=== PATIENT | female | born 1950 | race Caucasian/White ===

== ENCOUNTER → 2020-04-28 10:00 | Outpatient (BNVA) | payer MEDICARE, OTHER, SELFPAY | PROVIDERS: Visit Provider Internal Medicine | DX: R76.8 Other specified abnormal immunological findings in serum (principal); B19.20 Unspecified viral hepatitis C without hepatic coma; B18.2 Chronic viral hepatitis C; E11.9 Type 2 diabetes mellitus without complications; R94.5 Abnormal results of liver function studies | CPT/HCPCS: 80053; 82105; 85025; 86705; 86706; 86709; 86803; 87340; 87522; 87902 ==

== ENCOUNTER → 2020-05-03 08:48 | Outpatient (BNVA) | payer MEDICARE, OTHER, SELFPAY | PROVIDERS: Visit Provider Nurse Practitioner Family | DX: E11.9 Type 2 diabetes mellitus without complications (principal) | CPT/HCPCS: 85025 ==

== ENCOUNTER → 2020-06-21 09:18 | Outpatient (BNVA) | payer MEDICARE, OTHER, SELFPAY | PROVIDERS: Visit Provider Internal Medicine | DX: B19.20 Unspecified viral hepatitis C without hepatic coma (principal) | CPT/HCPCS: 87522 ==

== ENCOUNTER → 2020-11-15 10:30 | Outpatient (BNVA) | payer MEDICARE, OTHER, SELFPAY | PROVIDERS: Visit Provider Internal Medicine | DX: B18.2 Chronic viral hepatitis C (principal) | CPT/HCPCS: 87522 ==

== ENCOUNTER 2022-08-20 10:09 | Outpatient (CLI) | payer MEDICARE, OTHER, SELFPAY ==
--- NOTE | 2022-08-20 10:45 | XRR_ITS ---
PROCEDURE INFORMATION: Exam: XR Chest Exam date and time: 08/20/2022 10:45 AM Age: 71 years old Clinical indication: Pre-operative exam; Cardiovascular screening and respiratory screening exam; Prior surgery; Surgery type: Neck; Patient HX: Recently diagnosed with tongue cancer, pre-op screening; Additional info: Malignant (primary)neoplasm TECHNIQUE: Imaging protocol: Radiologic exam of the chest. Views: 2 views. COMPARISON: No relevant prior studies available. FINDINGS: Lungs: The lungs are overinflated which may indicate pulmonary emphysema. No pulmonary infiltrates. Pleural spaces: Unremarkable. No pleural effusion. No pneumothorax. Heart/Mediastinum: Unremarkable. No cardiomegaly. Bones/joints: Unremarkable. XR/XR chest 2V* [id number] IMPRESSION: Overinflated lungs which may indicate pulmonary emphysema. No acute abnormality.
[2022-08-20 11:27] LABS: Basophils % 0.6 %; Eosinophils # 0.1 10^3/uL (0.0-0.8); Eosinophils % 1.6 %; Hematocrit 41.4 % (37.0-47.0); Hemoglobin 13.8 g/dL (11.5-15.3); Lymphocytes # 3.5 10^3/uL (0.8-4.8); Lymphocytes % 49.4 %; Mean Corpuscular HGB Conc 33.3 g/dL (30.0-36.0); Mean Platelet Volume 10.6 fL (7.4-10.4); Monocytes # 0.5 10^3/uL (0.2-0.9); Monocytes % 7.2 %; Neutrophils # 2.86 10^3/uL (1.8-7.7); Neutrophils % 40.9 %; Nucleated Red Blood Cells % 0 %; Platelet Count 163 10^3/cmm (130-400); Red Blood Count 4.18 10^6/uL (4.1-5.3); Red Cell Distribution Width 12.3 % (12.1-15.1)
--- NOTE | 2022-08-20 11:32 | ECG_ITS ---
[facility] Test Date: 2022-08-20 Pat Name: Lilia Jett Department: Room: Gender: Female Adjunct Business Instructor: : 1950 Requested By: Tylor Dia Order Number: [id number] Reading MD: Ryan Bazzi M.D. Measurements Intervals [place] Rate: 58 P: 78 OK: 169 QRS: 40 QRSD: 89 T: 48 QT: 400 QTc: 396 Interpretive Statements SINUS BRADYCARDIA No previous ECG available for comparison Electronically Signed On 08-20-2022 14:57:31 CDT by Ryan Bazzi M.D. [email or web address] centerUn[email or web address].[employer]store/[id number]
[2022-08-20 11:49] LABS: Alanine Aminotransferase 18 U/L (0-33); Albumin Level 4.4 g/dL (3.5-5.2); Alkaline Phosphatase 58 U/L (35-105); Aspartate Amino Transferase 27 U/L (0-32); Blood Urea Nitrogen 13 mg/dL (8-23); Calcium 9.8 mg/dL (8.5-10.5); Carbon Dioxide 28 mmol/L (22-29); Globulin 4.1 g/dL (1.3-4.6); Glucose 89 mg/dL (65-115); Osmolality Calculated 292 mOsm/kg (285-295); Sodium 141 mmol/L (136-145); Total Bilirubin 0.3 mg/dL (0.15-1.2); Total Protein 8.5 g/dL (6.6-8.7)
[2022-08-20 13:01] LABS: Chloride 101 mmol/L (98-107)
[2022-08-20 13:03] LABS: Anion Gap 16.1 (5-19); Potassium 4.1 mmol/L (3.5-5.1)
== END 2022-08-20 10:10 | disposition home or self-care (01) ==
PROVIDERS: PCP Family Medicine; Visit Provider Specialist
DX: Z01.810 Encounter for preprocedural cardiovascular examination (principal); C80.1 Malignant (primary) neoplasm, unspecified
CPT/HCPCS: 36415; 71046; 80053; 85025; 85610; 93005

== ENCOUNTER 2022-09-11 06:19 | Outpatient (CLI) | payer MEDICARE, OTHER, SELFPAY ==
--- NOTE | 2022-09-11 06:49 | CT_ITS ---
WS: [id number] CT NECK TECHNIQUE: Contrast-enhanced CT of the neck with coronal and sagittal reformatted images. CLINICAL INFORMATION: MALIGNANT NEOPLASM, UNSPECIFIED COMPARISON: None. DLP: 166.[address] scans at [facility] use at least one of these dose optimization techniques: automated e xposure control; mA and/or kV adjustment per patient size (includes targeted exams where dose is matc hed to clinical indication); or iterative reconstruction. FINDINGS: Parotid glands are normal in appearance. Normal submandibular glands. Tongue base is normal in appear ance. Normal posterior nasopharynx. Normal parapharyngeal fat. No supraglottic or glottic mass. Anabella l subglottic airway. Paranasal sinuses and mastoid air cells are well aerated. No cervical lymphadenopathy. Calcified RIGH T thyroid nodule measuring 9 x 11 mm Lung apices are well aerated. Calcified pleural plaques in the RIGHT lung apex. Mild spondylitic vogt ges cervical spine. CT/CT neck w con* [id number] IMPRESSION: 1. Parotid glands and submandibular glands are normal in appearance. 2. Tongue base is normal in appearance. Normal posterior nasopharynx and parap haryngeal fat. 3. No evidence of supraglottic or glottic mass. 4. Calcified 9 x 11 mm RIGHT thyroid nodule. 5. No cervical lymphadenopathy.
[2022-09-11] MEDS: iohexol 350 mg/mL 100 mL Btl IV (07:03)
== END 2022-09-11 06:20 | disposition home or self-care (01) ==
LOC: RAD 06:21
PROVIDERS: PCP Family Medicine; Visit Provider Specialist
DX: C80.1 Malignant (primary) neoplasm, unspecified (principal); E04.1 Nontoxic single thyroid nodule
CPT/HCPCS: 70491; Q9967

== ENCOUNTER 2022-09-25 12:48 | Inpatient (IN) | payer MEDICARE, OTHER, SELFPAY ==
[2022-09-24 12:39] VITALS: BMI 20.5
[2022-09-25] VITALS (38 sets, daily range): BP systolic 116–145; BP diastolic 56–75; PULSE 63–97; RESP 9–30; TEMP 36.3–37.1; O2SAT 91–99
[2022-09-25] MEDS: sodium chloride 0.9% 1,000 ML 30 ML IV (07:34)
--- NOTE | 2022-09-25 08:49 | ANES.PREANE2 ---
Pre-Anesthetic Assessment Height/Weight: Height 1.63 m Weight 54.431 kg Temp Pulse Resp BP Pulse Ox O2 Del Method 97.3 F L 63 18 125/70 99 09/25/22 07:24 09/25/22 07:24 09/25/22 07:24 09/25/22 07:24 09/25/22 07:24 09/25/22 07:29 Operation Date: 09/25/22 08:35 Proposed Procedures p Wide local excision of left tongue cancer,left neck dissection,direct/microdirect laryngoscopy with bx, flexible Esophagoscopy with bx C02.8(Left) - Tylor Pacheco MD s Neck Dissection(Left) - Tylor Pacheco MD s Direct Laryngoscopy(Not Applicable) - Tylor Pacheco MD s Esophagoscopy(Not Applicable) - Tylor Pacheco MD Familial anesthetic complications: none Was Beta Kenzie taken within 24 hours: Yes Was Clonidine taken within 24 hours: N/A Last intake: Intake Last Liquid Date 09/24/22 Last Liquid Time 22:00 Last Solid Date 09/24/22 Last Solid Time 18:00 Social Tobacco and No alcohol Exam alert, oriented x 3 and regular rate & rhythm Airway Submandibular: within normal limits Cervical ROM: within normal limits Mallampati: Class II Dentition: chipped Pulmonary Chronic Obstructive Pulmonary Disease CV/HEM Hypertension Hepatic Hep C? GI Gastroesophageal Reflux Disease Anesthetic Plan ASA status: 3 Anesthesia: General (nasal intubation per surgeon request) Medications/Allergies Home Medications Medication Instructions Recorded Confirmed Last Taken Type calcium carbonate 600 mg-vitamin 600 tab PO DAILY 03/29/20 09/24/22 09/24/22 History D3 1,000 unit-vitamin K2 90 mcg tab metoprolol tartrate 25 mg tablet 12.5 mg PO BID 03/29/20 09/24/22 09/25/22 05:30 History multivitamin with min 16 tab PO DAILY 03/29/20 09/24/22 09/24/22 History no.36-iron,carbonyl-FA 16 mg iron-0.38 mg tablet (Geritol Complete) omeprazole magnesium 20 mg 20 mg PO DAILY 03/29/20 09/24/22 09/23/22 History capsule,delayed release triamcinolone acetonide 0.1 % 1 applic topical BID 03/29/20 09/24/22 Unknown History topical cream Allergies Allergy/AdvReac Type Severity Reaction Status Date / Time codeine Allergy Intermediate hallucinati Verified 09/25/22 07:20 on ciprofloxacin Allergy Mild diarrhea Verified 09/25/22 07:20 Current Medications Generic Name Dose Route Start Last Admin Trade Name Freq PRN Reason Stop Dose Admin Sodium Chloride 1,000 mls @ 30 mls/hr 09/25/22 07:15 09/25/22 07:34 Sodium Chloride 0.9% IV 09/26/22 07:14 30 mls/hr .Q24H VARGHESE Administration PFSH Anesthesia Family History (Updated 04/28/20 @ 09:43 [address] Toña [address]) Other Cancer Diabetes Heart disease Social History (Updated 04/28/20 @ 09:44 [address] Toña [address]) Smoking and tobacco status: current every day smoker Alcohol intake: former Adopted: No Lives independently: Yes Marital status: / Number of children: 2 service: No History of recent travel: No Data Anesthesia Cardiac Studies: No Data to Display
--- NOTE | 2022-09-25 09:10 | W.PM.OPSUD ---
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
[2022-09-25] MEDS: ceFAZolin 2,000 MG in sodium chloride 0.9% (plus) 50 ML 100 MG IV (09:12)
[2022-09-25] MEDS: thrombin 5,000 unit SDV 5000 UNIT XX (11:17)
[2022-09-25] MEDS: gelatin 12-7 mm Sponge 1 EACH TOPICAL (11:17)
[2022-09-25] MEDS: ceFAZolin 1,000 mg SDV 1000 MG IRRIGATION (11:18)
[2022-09-25] MEDS: dexamethasone 4 mg/mL INJ INJECTION (11:18)
--- NOTE | 2022-09-25 11:57 | SUR.OPER ---
1157 Family Notified Of Patient's Status Via cell phone. no one answered and left voicemail on phone.
[2022-09-25] MEDS: neomycin-poly-bacitracin oint 28 gm 1 APPLIC TOPICAL (12:50)
--- NOTE | 2022-09-25 13:42 | PM.OP ---
Operative Report Date of procedure: September 25, 2022 Pre-op diagnosis: Preop Diagnosis Left tongue squamous cell carcinoma Post-op diagnosis: same Post-op findings: Squamous Cell Carcinoma of the Left Mobile Tongue - 3 X 4 cm final wound size Procedure done: Wide local excision of left mobile tongue SCCA Left supraomohyoid neck dissection Direct Laryngoscopy Flexible esophagoscopy with biopsy Implants: None Specimens removed/disposition: GE junction biopsy Left mobile tongue SCCA + Margins Pathology: GE junction biopsy Left mobile tongue SCCA + Margins Surgeon: Tylor Pacheco Automotive Tire Worker: Karen Light Anesthesia: General Estimated blood loss (mL): 100 IV fluids (mL): 1,300 Urine output (mL): 5 Complications: None Findings: SCCA of the left mobile tongue Esophagitis of the GE junction O/W Normal left neck exam O/W normal laryngeal and esophageal exams Condition: stable Disposition: ICU Brief History: 71 yo wf with a h/o SCCA of the left mobile tongue who desires surgical therapy. Procedure: The patient was identified in the preoperative holding area and was taken to the operating room where she was placed on the operating table in the supine position. Anesthesia was obtained with general endotracheal anesthesia the table was then turned 90 degrees to the patient's left. The patient was then prepped and draped in the usual sterile fashion. A moist Ray-Scotty was placed on the patient's maxillary teeth and a surgical laryngoscope was advanced down the right oral cavity gutter under direct vision to the larynx came into view. A systematic inspection was then carried out the patient larynx with the findings noted above. The laryngoscope was then removed and the flexible esophagoscope was passed into the esophagus and an inspection was carried of the patient's esophagus to the cardia of the stomach. Biopsies were taken at the GE junction. At this point the esophagoscope was removed and attention was turned to the patient's left tongue. A Denhart retractor was placed in the patient' oral cavity the tongue was retracted laterally to the right exposing the squamous cell carcinoma of the left mobile tongue. The lesion was then excised with a needlepoint electrocautery with an approximately 1 cm margin. The specimen was then tagged and sent for permanent section. At this point margins were taken and sent for frozen section analysis. Hemostasis was achieved electrocautery. The wound was packed with Betadine soaked gauze and the patient's was then turned 180 degrees. A hockey-stick incision was drawn out on the left neck and was injected with local anesthesia and the patient was then reprepped and draped in usual sterile fashion. The left neck incision was made with a 15 blade and was carried down through subcutaneous fat and platysma muscle. Blunt dissection and electrocautery and bipolar cautery were used to raise superior and inferior flaps. The digastric muscle was then dissected free from the surrounding tissues and the left submandibular gland was dissected free using a combination of blunt dissection and bipolar cautery. The hypoglossal nerve, lingual nerve, and marginal mandibular nerve were identified and preserved in place both visually and electrically. At this point the sternocleidomastoid muscle and the omohyoid muscle were dissected free from the surrounding tissues and then a progressive dissection began by dissecting the hypoglossal nerve and the spinal accessory nerve free from the surrounding tissues superiorly. The dissection then proceeded into the left neck medial to the left sternocleidomastoid muscle and posterior to the internal jugular vein. This dissection proceeded just anterior to the sternocleidomastoid muscle until the cervical rootlets were identified posteriorly and then the dissection turned anteriorly dissecting the fibrofatty tissue from the left neck until the internal jugular vein was encountered. The dissection then proceeded from lateral to medial while preserving the internal jugular vein, the carotid artery, the cervical rootlets, the phrenic nerve, the vagus nerve, and the ansa cervicalis. The dissection was accomplished using blunt dissection and bipolar cautery and the harmonic scalpel. Once the left neck specimen was removed from the neck the wound was inspected for hemostasis which was found to be adequate. At this point Gelfoam soaked in thrombin was placed in the wound and 2 drains were placed in the wound. The wound was then closed with a combination of 4-0 Monocryl sutures and subcu and running five 5-0 fast-absorbing gut on the skin. During this dissection the frozen section analysis of the left tongue margins came back as negative for malignancy. At this point the left tongue was reinspected and was closed with a combination of interrupted and running 4-0 Vicryl sutures. At this point the procedure was terminated and control of the patient was returned to anesthesia where she underwent an uneventful reversal of anesthesia and extubation was taken to the ICUin stable condition. There were no operative or anesthetic complications.
[2022-09-25] MEDS: lactated ringers 1,000 ML 100 ML IV (15:19)
--- NOTE | 2022-09-25 16:35 | ANE.PACU2 ---
Inpatient post-anesthesia follow up: Airway intact: Yes Vital signs: Temperature 97.5 F Pulse Rate 92 Respiratory Rate 15 Blood Pressure 132/64 Pulse Oximetry 95 Oxygen Delivery Me thod Room Air Oxygen Flow Rate Fraction of Inspir ed Oxygen Hydration adequate: Yes Nausea and vomiting: No Pain level: 3 Mental status: Baseline
[2022-09-25] MEDS: metoprolol tartrate 25 mg Tablet 12.5 MG PO (17:27)
[2022-09-25] MEDS: triamcinolone 0.1% cream 15 gm 1 APPLIC TOPICAL (17:28)
[2022-09-25] MEDS: clindamycin 600 MG/50 ML PREMIX 100 MG IV (17:28)
--- NOTE | 2022-09-25 17:54 | P.PN_ITS ---
Subjective Subjective: 71 yo wf who is night of surgery s/p WLE of left tongue SCCA with Left Supraomohyoid neck dissection. The patient is doing well by her report - she is able to eat and is able to control her pain with Tylenol. Medications: Reviewed: Yes Vitals/I&O/Wt Last Vital Signs Temp 97.5 F L 09/25/22 14:25 Pulse 96 09/25/22 17:42 Resp 15 09/25/22 16:15 BP 132/64 09/25/22 16:15 Pulse Ox 97 09/25/22 17:42 O2 Del Method 09/25/22 17:42 09/25/22 09/25/22 09/25/22 06:59 14:59 22:59 Intake Total 1350 / 1350 1000 / 2350 Output Total 155 / 155 Balance 1195 / 1195 1000 / 2195 Weight last 48 hrs Weight 54.431 kg Physical Exam Const: COMMON NORMALS: no acute distress, average body habitus and patient oriented x3 HENMT: COMMON NORMALS: normocephalic and atraumatic HEAD & SCALP: normocephalic and atraumatic Eye: COMMON NORMALS: Equal, round and reactive pupils present, EOMs intact bilaterally and conjunctivae normal CONJUNCTIVA: Yes conjunctivae normal PUPIL: Yes Equal, round and reactive pupils present Neck/C-Spine: COMMON NORMALS: no lymphadenopathy and supple GENERAL: Yes other (The left neck wound is intact and without swelling.) Resp: COMMON NORMALS: normal respiratory effort, No use of accessory muscles and clear to auscultation bilaterally AUSCULTATION: clear to auscultation bilaterally Cardio: COMMON NORMALS: regular rate and No murmurs present (Cardio) RATE: regular rate GI: COMMON NORMALS: Normal to inspection, nondistended, normoactive bowel sounds present Extremity: COMMON NORMALS: normal to inspection Neuro: COMMON NORMALS: patient oriented x3 Urinary Catheter Management: Perez: Cath Placed During This Visit: yes Urinary Catheter Date of Insertion: 09/25/22 Urinary Catheter Time of Insertion: 09:22 A&P Assessment and plan (1) Tongue malignant neoplasm: Impression: 71 yo wf who is night of surgery s/p WLE of left mobile tongue SCCA with left SOHND who is doing well Plan: - Closed suction drainage of the patient's left neck wound - Clear liquid diet - advance as tolerated - Pain control - Resume all preop medications - Anticipate d/c in 1-2 days Attestations Medical Necessity Statement*: The patient requires inpatient care until she can take po well and her pain is under control Coding Level of Care Code Acute Front End Software Developer for Brianna [employer] Diagnoses Tongue malignant neoplasm C02.9
[2022-09-25] MEDS: acetaminophen 500 mg Tablet PO (18:19)
[2022-09-26] VITALS (14 sets, daily range): BP systolic 102–124; BP diastolic 54–64; PULSE 70–85; RESP 14–20; TEMP 36.2–36.9; O2SAT 93–95
[2022-09-26] MEDS: clindamycin 600 MG/50 ML PREMIX 100 MG IV (01:08)
[2022-09-26] MEDS: lactated ringers 1,000 ML 100 ML IV ×2 (01:36→12:39)
--- NOTE | 2022-09-26 04:55 | PM.PN ---
Subjective Subjective: 71 yo wf who is POD #1 s/p WLE of a cT1 N0 M0 SCCA of the left mobile tongue who is doing well this morning. The patient is able to eat without difficulty and reports minimal pain. She is o/w without c/o. Medications: Reviewed: Yes Vitals/I&O/Wt Last Vital Signs Temp 98.5 F 09/26/22 00:00 Pulse 85 09/26/22 04:00 Resp 18 09/26/22 04:00 BP 116/55 09/26/22 04:00 Pulse Ox 93 09/26/22 04:00 O2 Del Method 09/25/22 19:44 09/25/22 09/25/22 09/26/22 14:59 22:59 06:59 Intake Total 1350 / 1350 3270 / 4620 1050 / 5670 Output Total 155 / 155 420 / 575 Balance 1195 / 1195 2850 / 4045 1050 / 5095 Weight last 48 hrs Weight 54.431 kg Physical Exam Const: COMMON NORMALS: no acute distress, patient oriented x3 and alert GENERAL APPEARANCE: cooperative HENMT: COMMON NORMALS: normocephalic and atraumatic HEAD & SCALP: normocephalic and atraumatic Eye: COMMON NORMALS: Equal, round and reactive pupils present, conjunctivae normal and no scleral icterus CONJUNCTIVA: Yes conjunctivae normal PUPIL: Yes Equal, round and reactive pupils present Neck/C-Spine: COMMON NORMALS: no lymphadenopathy and supple THYROID: other (The patient's left neck wound is intact without swelling.) Resp: COMMON NORMALS: normal respiratory effort and clear to auscultation bilaterally AUSCULTATION: clear to auscultation bilaterally Cardio: COMMON NORMALS: regular rate, regular rhythm and No murmurs present (Cardio) RATE: regular rate RHYTHM: regular rhythm GI: COMMON NORMALS: Normal to inspection, nondistended, normoactive bowel sounds present Extremity: COMMON NORMALS: normal to inspection Neuro: COMMON NORMALS: patient oriented x3 SENSORIUM/ORIENTATION: Yes alert Urinary Catheter Management: Perez: Cath Placed During This Visit: yes Urinary Catheter Date of Insertion: 09/25/22 Urinary Catheter Time of Insertion: 09:22 A&P Assessment and plan (1) Tongue malignant neoplasm: Impression: 71 yo wf who is POD #1 s/p WLE of left tongue SCCA and Left SOHND. The patient is doing well. Plan: - Continue ICU observation today - Advance diet - Closed suction drainage - Continue preop medications - Pain control - Anticipate d/c today or tomorrow Attestations Medical Necessity Statement*: The patient required inpatient care until she is able to eat. Coding Level of Care Code Acute Welding Lead Burner [facility] Diagnoses Tongue malignant neoplasm C02.9
[2022-09-26] MEDS: acetaminophen 500 mg Tablet PO ×2 (06:28→12:39)
[2022-09-26] MEDS: metoprolol tartrate 25 mg Tablet 12.5 MG PO (08:48)
[2022-09-26] MEDS: triamcinolone 0.1% cream 15 gm 1 APPLIC TOPICAL (08:55)
--- NOTE | 2022-09-26 11:44 | PC.CHAP ---
Pastoral Care Encounter/Spiritual Assessment Type of Contact [] Declined take away man visit [] Patient/Family/Request visit [] Outpatient visit [] Follow-up visit [] Physician referral [] Code/Alert [x] Routine visit [] Staff referral [] Actively dying [] Patient sleeping [] Family support [] [] Out of room [] Palliative care [] [] Receiving care in room [] Pre-surgical visit [] Trauma [] Long length of stay [x] ICU visit [x] Other: moved Relational/Emotional Strength [] Patient feels connected with others/family/visitors/staff [] Distress [] Loneliness/isolation [] Abandonment Spirituality of Patient [] Person of Catarina [] Attends Jain of their Catarina [] Believes in Prayer [] Reads Bible or Hindu materials [] There are Spiritual issues to be addressed Ornamental Plaster Sticker Interventions [x] Prayer [] Active listening [] Non-anxious presence [] Spiritual/emotional support [] Crisis/trauma care [] Spiritual counseling [] Bereavement support [] Provided bereavement packet [] Provided Bible/devotional materials [] Provided toy/stuffed animal, coloring book to patient or family member [] Provided Communion [] Anointing/Soldier [] Salvation [x] Completed spiritual assessment [] Other: Impact on Illness or Injury [] Angry [] Fearful [] Anxious [] Often cries [] Exhaustion [] Unable to work [] Unable to attend gnosticism [] Unable to walk/stand [] Unable to read [] Unable to drive [] Unable to eat/drink [] Unable to sleep [] Unable to be with family [] Patient intubated [] Other: Summary Time spent with patient
--- NOTE | 2022-09-26 17:21 | P.DS_ITS ---
Discharge Providers Date of Admission: 09/25/22 12:48 Date of Discharge: September 26, 2022 Attending Provider at Admission: Tylor Pacheco MD Attending Provider at Discharge: Tylor Pacheco MD Consults: None Primary Care Provider: Dr. Tristan Roberts MD Diagnoses at Discharge Discharge Diagnosis (1) Tongue malignant neoplasm: Details from hospital stay: T1 N0 M0 Squamous Cell Carcinoma of the left mobile tongue - completely excised Status: Acute Reason for Visit Reason for Visit: Malignant neoplasm: Overlapping lesion of tongue Brief History: 71 yo wf with a h/o a T1 N0 M0 squamous cell carcinoma of the left mobile tongue. The patient presents for surgical therapy. Hospital Course Hospital Course The patient was admitted on 25 September for definitive surgical management of her left mobile tongue lesion. The patient underwent a wide local excision with left supraomohyoid neck dissection on 25 September (please see op report for details details of this procedure). The patient was transferred to the intensive care unit postoperatively where she was monitored for wound or airway complications. The patient did well and by postoperative day #1 was taking liquids well without complications. The patient's close suction drains had minimal output. The patient was therefore discharged in stable condition on postoperative day #1. Physical Exam Const: COMMON NORMALS: no acute distress, patient oriented x3 and alert HENMT: COMMON NORMALS: normocephalic and atraumatic HEAD & SCALP: normoceph alic and atraumatic FACE & SINUS: normal facial exam and face symmetric THROAT: other (The left tongue wound is intact.) Eye: COMMON NORMALS: Equal, round and reactive pupils present, conjunctivae normal and no scleral icterus CONJUNCTIVA: Yes conjunctivae normal PUPIL: Yes Equal, round and reactive pupils present Neck/C-Spine: COMMON NORMALS: full ROM and supple GENERAL: Yes other (The left neck wound is intact and without swelling. ) Resp: COMMON NORMALS: normal respiratory effort and No use of accessory muscles Cardio: COMMON NORMALS: regular rate, regular rhythm and No murmurs present (Cardio) RATE: regular rate RHYTHM: regular rhythm GI: COMMON NORMALS: Normal to inspection, nondistended, normoactive bowel sounds present Extremity: COMMON NORMALS: normal to inspection Neuro: COMMON NORMALS: patient oriented x3 SENSORIUM/ORIENTATION: Yes alert Urinary Catheter Management: Perez: Cath Placed During This Visit: yes Urinary Catheter Date of Insertion: 09/25/22 Urinary Catheter Time of Insertion: :22 Discharge Data Studies Completed and Pending Completed Studies During Hospitalization Category Date Time Status Pathology: Surgical [PTH] Routine Pth 09/25/22 10:16 Completed Additional Data from Hospital Stay Path Report (Verbal): Clear margins Vitals Last Vital Signs Temp 97.2 F L 09/26/22 08:00 Pulse 80 09/26/22 14:00 Resp 17 09/26/22 14:00 BP 119/58 09/26/22 14:00 Pulse Ox 95 09/26/22 14:00 O2 Del Method 09/26/22 08:00 Discharge Plan Discharge Patient Disposition: Home Condition: Stable Prescriptions: New clindamycin HCl 300 mg capsule 300 mg PO Q6H 7 Days Qty: 28 0RF Continued metoprolol tartrate 25 mg tablet 12.5 mg PO BID triamcinolone acetonide 0.1 % cream 1 applic TOPICAL BID Geritol Complete 16 mg iron- 0.38 mg tablet 16 tab PO DAILY calcium carb-vitamin D3-vit K2 600 mg-1,000 unit-90 mcg tablet 600 tab PO DAILY omeprazole magnesium 20 mg capsule,delayed release(DR/EC) 20 mg PO DAILY Discharge Orders: Discharge Order (Routine); Ordered 09/26/22 Ordered By: Tylor Pacheco Discharge Diet: Advance as tolerated Discharge Activity: Resume usual activity Patient Instructions: Opioid Safety Assessment: - Apply ESTRELLA to left neck wound TID - Resume all preop medications - F/U in Dr. Pacheco's office on 09/28/22 @ 1300 - Notify Dr. Pacheco for any problems - Full liquid/soft food diet, then advance as tolerated Discharge Attestations Time Spent in Discharge Care*: greater than 30 min Quality Metrics Clinical Quality Measures [ No reported AMI, CVA or VTE this stay] Coding Level of Care Code Acute Chg FW DC note Diagnoses Tongue malignant neoplasm C02.9
--- NOTE | 2022-09-26 18:28 | PC.NURSE ---
1800 Patient request to take home 1800 meds at home tonight after getting home. Daughter at bedside, and assisting patient to home and through the night.
== END 2022-09-26 18:15 | disposition home or self-care (01) | DRG 142 ==
LOC: ICU 09-26 00:41
PROVIDERS: Admitting Provider Specialist; PCP Family Medicine; Visit Provider Specialist
PROC: 07T20ZZ Resection of Left Neck Lymphatic, Open Approach (ICD-10-PCS; principal; 2022-09-25 08:25)
PROC: 07T20ZZ Resection of Left Neck Lymphatic, Open Approach (ICD-10-PCS; 2022-09-25 08:25)
PROC: 0CJS8ZZ Inspection of Larynx, Via Natural or Artificial Opening Endoscopic (ICD-10-PCS; 2022-09-25 08:25)
PROC: 0DJ08ZZ Inspection of Upper Intestinal Tract, Via Natural or Artificial Opening Endoscopic (ICD-10-PCS; 2022-09-25 08:25)
DX: C02.8 Malignant neoplasm of overlapping sites of tongue (principal); K20.90 Esophagitis, unspecified without bleeding
CPT/HCPCS: 12345; 51702; 88305; 88307; 88309; 88331; J0330; J0690; J1100; J1200; J2405; J2704; J3010; J3490; J7030; J7120

== ENCOUNTER 2022-12-18 07:05 | Outpatient (CLI) | payer MEDICARE, OTHER, SELFPAY ==
--- NOTE | 2022-12-18 08:02 | CT_ITS ---
WS: [id number] CT NECK TECHNIQUE: Contrast-enhanced CT of the neck with coronal and sagittal reformatted images. 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 FINDINGS: Interval postoperative changes resection of the LEFT submandibular gland with LEFT cervical lymph node dissection. Surgical clips in the LEFT side of the neck. Prominent enhancing lymph node i n the LEFT submandibular space measuring 8.5 x 6.5 mm. Adjacent smaller lymph node measuring 4.7 mm. RIGHT submandibular gland is normal. Parotid glands are normal. Mastoid air cells well aerated. Paran praneeth sinuses are well aerated. Normal posterior nasopharynx. Normal parapharyngeal fat. No evidence o f supraglottic or glottic mass. Normal subglottic airway. Stable calcified RIGHT thyroid nodule. Mild spondylitic changes cervical spine. Disc space narrowing worse at C5-C6 and C6-C7. CT/CT neck w con* [id number] IMPRESSION: 1. Interval resection LEFT submandibular gland. 2. Enhancing prominent lymph node in the LEFT submandibular space measuring 8. 5 x 6.4 mm. Recurrent disease is not excluded. Consider further evaluation with PET/CT. 3. Adjacent normal sized lymph node measuring 4.7 mm. 4. Otherwise no cervical lymphadenopathy. 5. No evidence of supraglottic or glottic mass. 6. Calcified RIGHT thyroid nodule is stable. 7. No other acute findings.
[2022-12-18 08:12] LABS: Blood Urea Nitrogen 14 mg/dL (8-23)
[2022-12-18] MEDS: iohexol 350 mg/mL 500 mL Btl (per mL) IV (08:18)
== END 2022-12-18 07:06 | disposition home or self-care (01) ==
LOC: RAD 07:17
PROVIDERS: PCP Family Medicine; Visit Provider Specialist
DX: C02.8 Malignant neoplasm of overlapping sites of tongue (principal); Z79.899 Other long term (current) drug therapy
CPT/HCPCS: 70491; 82565; 84520; Q9967

== ENCOUNTER 2023-01-05 05:40 | Outpatient (CLI) | payer MEDICARE, OTHER, SELFPAY ==
--- NOTE | 2023-01-05 | PETR_ITS ---
PROCEDURE INFORMATION: Exam: PET/CT Skull Base to Mid-thigh Exam date and time: 01/05/2023 9:52 AM Age: 72 years old Clinical indication: Condition or disease; Primary cancer: Malignant neoplasm of tongue; Initial oncological staging assessment LABS AND CLINICAL REPORTS: Glucose: 116 mg/dl Treatment strategy for malignancy (PET staging): Initial Staging (PI) TECHNIQUE: Imaging protocol: Following at least four-hour fasting and following the injection of F-18-FDG, low dose CT images were obtained. Then, PET images were obtained. Attenuation corrected images were constructed using the CT scan. Fused images of PET and CT were reviewed. The standardized uptake values (SUV) reported below are maximum values within a region of interest, expressed in gm/ml. Exam includes orbital meatal line to mid-thigh. Radiopharmaceutical: 14.78 mCi F-18 FDG (Fluorodeoxyglucose), IV. Time of imaging post radiopharmaceutical administration: 46.8 minutes. Injection site: Left antecubital vein. COMPARISON: 1. CT neck with contrast 12/18/2022. 2. CT neck with contrast 09/11/2022. FINDINGS: Limitations: Misregistration artifact in the neck due to patient movement was corrected manually. Brain: Visualized brain has normal physiologic uptake. Salivary glands: The left submandibular gland has been resected. Pharynx: No abnormal uptake. Larynx: Symmetric laryngeal activity is considered physiologic. SUV max is 5.9. Thyroid: Stable calcifications in the right thyroid lobe measure up to 5 mm. No abnormal FDG avidity in the thyroid. Lungs, pleura and trachea: Mild bilateral dependent subpleural atelectasis. No pulmonary nodules. Heart: Heart size is normal. Mediastinal space: No abnormal uptake. Liver: No abnormal uptake. Gallbladder and bile ducts: No abnormal uptake. Pancreas: No abnormal uptake. Spleen: No abnormal uptake. Adrenal glands: No abnormal uptake. Kidneys and ureters: Normal physiologic uptake. Stomach and bowel: No abnormal uptake. Reproductive: Post hysterectomy. Vasculature: No abnormal uptake. Lymph nodes: No FDG avid lymph nodes. Left cervical lymph node dissection. The 8.5 x 6.4 mm left submandibular lymph node, which was of concern on the CT neck 12/18/2022, has an SUV max of 2.8, which is indeterminate (images 3:20 and 4:20). However, due to its relatively small size, its true SUV max may be underestimated due to partial volume artifact. There are no other FDG avid cervical lymph nodes. Bones/joints: Degenerative disc narrowing at C5-C6 and C6-C7. Soft tissues: No metabolically active areas. PET/PET skulltothigh INITIAL [id number] IMPRESSION: 1. Surgical absence of the left submandibular gland. 2. The 8.5 x 6.4 mm left submandibular lymph node, which was of concern on the CT neck 12/18/2022, has an SUV max of 2.8, which is indeterminate (images 3:20 and 4:20). However, due to its relatively small size, its true SUV max may be underestimated due to partial volume artifact. A follow-up CT of the neck is recommended in 2-3 months in order to document stability. 3. There are no other FDG avid cervical lymph nodes.
== END 2023-01-05 05:41 | disposition home or self-care (01) ==
LOC: RAD 01-07 05:40
PROVIDERS: PCP Family Medicine; Visit Provider Specialist
DX: C02.8 Malignant neoplasm of overlapping sites of tongue (principal)
CPT/HCPCS: 78815; A9552

== ENCOUNTER 2023-02-25 10:27 | Outpatient (CLI) | payer MEDICARE, OTHER, SELFPAY ==
--- NOTE | 2023-02-25 10:49 | MM_ITS ---
WS: [id number] SCREENING DIGITAL BREAST TOMOSYNTHESIS MAMMOGRAM WITH CAD HISTORY: SCREENING COMPARISON: 12/07/2015 Bilateral CC and MLO with tomosynthesis and synthetic mammography submitted. Computer aided detection analyzed. Breast composition: There are scattered areas of fibroglandular density. There are numerous bilateral small calcifications scattered throughout each breast. There are additional coarse calcifications wh ich are benign. The number of small calcifications is increased since 2016. No mass or distortion. MM/[place] [id number] IMPRESSION: BI-RADS: 0-Incomplete: Need additional imaging evaluation FOLLOW UP: Need Additional Imaging Bilateral breast: Spot compression views (CC and MLO). True ML. Ultrasound to f ollow if abnormality persists.
== END 2023-02-25 10:28 | disposition home or self-care (01) ==
LOC: RAD 10:30
PROVIDERS: PCP Family Medicine; Visit Provider Family Medicine
DX: Z12.31 Encounter for screening mammogram for malignant neoplasm of breast (principal)
CPT/HCPCS: 77063; 77067

== ENCOUNTER 2023-02-25 10:32 | Outpatient (CLI) | payer MEDICARE, OTHER, SELFPAY ==
--- NOTE | 2023-02-25 10:50 | CT_ITS ---
WS: [id number] CT NECK TECHNIQUE: Contrast-enhanced CT of the neck with coronal and sagittal reformatted images. CLINICAL INFORMATION: ENLARGED LYMPH NODES COMPARISON: CT December 18, 2022 DLP: 129.[address] scans at [facility] use at least one of these dose optimization techniques: automated e xposure control; mA and/or kV adjustment per patient size (includes targeted exams where dose is matc hed to clinical indication); or iterative reconstruction. FINDINGS: Prior resection LEFT submandibular gland with a LEFT cervical lymph node dissection. Surgical clips L EFT neck. RIGHT submandibular gland normal. Parotid glands are normal. Paranasal sinuses and mastoid air cells well aerated. Normal posterior nasopharynx. Normal parapharyn geal fat. No evidence of supraglottic or glottic mass. Subglottic airway is patent. Stable calcified RIGHT thyroid nodule. Mild to moderate spondylitic changes cervical spine. Lung apic es are well aerated. Calcified pleural plaques in the RIGHT upper lobe. Previously described enhancin g 6.5 x 8.3 mm lymph node in the LEFT submandibular space unchanged. No evidence of progression. No n ew lymphadenopathy. CT/CT neck w con* [id number] IMPRESSION: 1. Stable 6.5 x 8.3 mm enhancing lymph node in the LEFT submandibular resectio n bed. No evidence of progression. This is unchanged. 2. Overall no significant changes compared to previous. 3. Prior resection LEFT submandibular gland with LEFT cervical neck node disse ction. 4. Otherwise normal salivary glands. 5. Calcified RIGHT thyroid nodule. 6. No evidence of supraglottic or glottic mass.
[2023-02-25 12:02] LABS: Blood Urea Nitrogen 13 mg/dL (8-23)
[2023-02-25] MEDS: iohexol 350 mg/mL 500 mL Btl (per mL) IV (12:08)
== END 2023-02-25 10:33 | disposition home or self-care (01) ==
LOC: RAD 10:33
PROVIDERS: PCP Family Medicine; Visit Provider Specialist
DX: C02.8 Malignant neoplasm of overlapping sites of tongue (principal); R59.0 Localized enlarged lymph nodes
CPT/HCPCS: 70491; 82565; 84520; Q9967

== ENCOUNTER 2023-03-12 13:35 | Outpatient (CLI) | payer MEDICARE, OTHER, SELFPAY ==
--- NOTE | 2023-03-12 13:48 | MM_ITS ---
WS: [id number] DIAGNOSTIC BILATERAL DIGITAL BREAST TOMOSYNTHESIS MAMMOGRAPHY WITH CAD HISTORY: ABNORMAL MAMMO, calcifications. COMPARISON: 12/07/2015 TECHNIQUE: Bilateral craniocaudad, mediolateral oblique, and mediolateral views are submitted with to mosleonarda and SM. Magnification views bilateral CC and MLO. Computer aided detection utilized. Breast composition: There are scattered areas of fibroglandular density.. Diffuse scattered calcifica tions in each breast but greatest in the upper outer quadrants. There are additional benign coarse ca lcifications. Favor these calcifications are all benign due to their diffuse scattered nature. These are very small round calcifications. No extension along a duct-like distribution. With no recent exam inations for comparison short-term follow-up will be recommended. MM/[place] [id number] IMPRESSION: BI-RADS: 3-Probably Benign FOLLOW UP: 6 Month Follow-up Bilateral breast calcifications are likely benign due to their appearance and d istribution. Recommend bilateral mammogram follow-up in 6 months with magnifica tion views. Serial evaluation to demonstrate long-term stability of these calci fications will be necessary.
== END 2023-03-12 13:36 | disposition home or self-care (01) ==
PROVIDERS: PCP Family Medicine; Visit Provider Family Medicine
DX: R92.8 Other abnormal and inconclusive findings on diagnostic imaging of breast (principal)
CPT/HCPCS: 77062; G0279

== ENCOUNTER 2024-07-09 15:55 | Outpatient (CLI) | payer MEDICARE, OTHER, SELFPAY ==
--- NOTE | 2024-07-09 16:11 | XR_ITS ---
WS: [id number] CHEST 2 VIEWS HISTORY: Localized enlarged lymph nodes COMPARISON: 08/20/2022 Lungs: Moderate pulmonary hyperinflation. No mass or pulmonary nodules. Mild biapical pleural thicken ing. Cardiac size: Normal. Mediastinum/Aorta: Normal mediastinum. Bones: Mild osteopenia. No destructive bone lesions. XR/XR chest 2V* [id number] IMPRESSION: 1. Mild hyperinflation from emphysema. 2. No pulmonary mass or nodule.
[2024-07-09 16:21] LABS: Basophils % 0.5 %; Eosinophils # 0.1 10^3/uL (0.0-0.8); Eosinophils % 1.2 %; Lymphocytes # 2.6 10^3/uL (0.8-4.8); Lymphocytes % 43.3 %; Mean Corpuscular HGB Conc 33.4 g/dL (30-55); Mean Corpuscular Hemoglobin 32.3 pg (27-33); Mean Corpuscular Volume 96.7 fl (85-98); Mean Platelet Volume 10.9 fL (7.4-10.4); Monocytes # 0.5 10^3/uL (0.2-0.9); Monocytes % 7.9 %; Neutrophils # 2.81 10^3/uL (1.8-7.7); Neutrophils % 46.9 %; Nucleated Red Blood Cells % 0 %; Platelet Count 156 10^3/cmm (157-399); Red Blood Count 4.24 10^6/uL (3.85-5.65); Red Cell Distribution Width 12.2 % (12.1-15.1); White Blood Count 5.98 10^3/uL (3.29-11.43)
[2024-07-09 16:43] LABS: Alanine Aminotransferase 17 U/L (0-33); Albumin Level 4.5 g/dL (3.5-5.2); Alkaline Phosphatase 55 U/L (35-105); Blood Urea Nitrogen 14 mg/dL (8-23); Calcium 9.4 mg/dL (8.5-10.5); Carbon Dioxide 27 mmol/L (22-29); Chloride 102 mmol/L (98-107); Globulin 3.8 g/dL (1.3-4.6); Glucose 93 mg/dL (65-115); Osmolality Calculated 290 mOsm/kg (285-295); Sodium 140 mmol/L (136-145); Total Bilirubin 0.4 mg/dL (0.15-1.2); Total Protein 8.3 g/dL (6.6-8.7)
[2024-07-09 19:53] LABS: Anion Gap 15.9 (5-19); Aspartate Amino Transferase 31 U/L (0-32); Potassium 4.9 mmol/L (3.5-5.1)
== END 2024-07-09 15:56 | disposition home or self-care (01) ==
PROVIDERS: PCP Family Medicine; Visit Provider Specialist
DX: R59.0 Localized enlarged lymph nodes (principal); C02.8 Malignant neoplasm of overlapping sites of tongue
CPT/HCPCS: 71046; 80053; 85025